=== PATIENT | female | born 1940 | race Caucasian/White ===

== ENCOUNTER 2021-10-22 22:35 | Emergency (ER) | payer MEDICARE ==
[~2021-10-22] VITALS: Ht 162.6 cm; Wt 62.6 kg
[2021-10-22 22:37] VITALS: BP_SYST 139
--- NOTE | 2021-10-22 22:37 | NUR ---
Pt BIB ALS, placed to ER bed 02, to gown and parts counterperson. Pt c/o slow onset and constant substernal chest pain with pressure, onset 1 hour [employer]. Pt states that she was sitting at the table with granddaughter, eating dinner when s/s occured. ALS established 20GA PIV in route and gave ASA 324 mg PO, NTG 0.4 mg x 3 sprays, and Zofran 4 mg IVP for 1 episode of vomiting. VSS.
--- NOTE | 2021-10-22 22:40 | NUR ---
Dr. Giraldo at bedside.
[2021-10-22] MEDS ORDERED: ONDANSETRON HCL 4 MG/2 ML VIAL IVP ONE (22:45)
[2021-10-22] MEDS ORDERED: ASPIRIN 81 MG TAB.CHEW PO ONE (22:45)
[2021-10-22] MEDS ORDERED: fentaNYL CITRATE/PF 100 MCG/2 ML AMP IVP ONE (22:45)
[2021-10-22] MEDS ORDERED: ASPIRIN 81 MG TAB.CHEW ONE (22:54)
[2021-10-22 23:21] LABS: EOSINOPHILS # (AUTO) 0.1 K/uL (0.0-0.4); EOSINOPHILS % (AUTO) 1.4 % (0.0-4.0); HEMATOCRIT 34.6 % (36-48); HEMOGLOBIN 11.9 g/dL (12.0-16.0); LYMPHOCYTES % (AUTO) 41.8 % (20.5-51.5); MEAN CORPUSCULAR HEMOGLOBIN 35 pg (27-31); MEAN CORPUSCULAR HGB CONC 34 % (32-36); MEAN CORPUSCULAR VOLUME 101 fL (79.0-98.0); MONOCYTES # (AUTO) 0.5 K/uL (0.0-1.0); MONOCYTES % (AUTO) 10.5 % (1.7-9.3); NEUTROPHILS # (AUTO) 2.1 K/uL (1.8-7.7); NEUTROPHILS % (AUTO) 45.3 % (40.0-70.0); PLATELET COUNT (AUTO) 298 K/uL (130-430); RED BLOOD CELL COUNT(AUTO) 3.43 MIL/uL (4.2-6.2); RED CELL DISTRIBUTION WIDTH 13.8 % (9.0-15.0); WHITE BLOOD COUNT (AUTO) 4.7 K/uL (4.8-10.8)
[2021-10-22] MEDS ORDERED: ONDANSETRON HCL 4 MG/2 ML VIAL ONE (23:24)
[2021-10-22 23:39] LABS: ANION GAP 12 (5-15); CALCIUM 8.2 mg/dL (8.4-11.0); CHLORIDE 86 mmol/L (98-107); CREATININE 0.78 mg/dL (0.55-1.30); GLUCOSE 159 mg/dL (70-99); UREA NITROGEN, BLOOD 10 mg/dL (8-21)
[2021-10-22 23:47] LABS: ALANINE AMINOTRANSFERASE 23 U/L (12-78); ALBUMIN 3.7 g/dL (3.4-4.8); ASPARTATE AMINOTRANSFERASE 24 U/L (10-37); TOTAL BILIRUBIN 0.5 mg/dL (0.0-1.0)
[2021-10-22 23:50] LABS: SODIUM SERUM 119 mmol/L (136-145)
[2021-10-23 00:29] LABS: BILIRUBIN,URINE NEGATIVE (NEGATIVE); BLOOD, URINE NEGATIVE (NEGATIVE); CLARITY/URINE CLEAR (CLEAR); COLOR,URINE GREEN (YELLOW); GLUCOSE,URINE TRACE (NEGATIVE); KETONES,URINE NEGATIVE (NEGATIVE); LEUKOCYTE ESTERASE ,URINE NEGATIVE (NEGATIVE); NITRITE, URINE NEGATIVE (NEGATIVE); PH,URINE 6.5 (5.0-8.0); PROTEIN URINE NEGATIVE (NEGATIVE); UROBILINOGEN,URINE 0.2 (0.2-1.0)
[2021-10-23] MEDS ORDERED: fentaNYL CITRATE/PF 100 MCG/2 ML AMP IVP ONE ×2 (02:00→03:30)
[2021-10-23] MEDS ORDERED: POTASSIUM CHLORIDE 20 MEQ TAB.PRT.SR PO ONE (02:00)
[2021-10-23] MEDS ORDERED: MAGNESIUM SULFATE 50 ML IV ONE (02:00)
[2021-10-23] MEDS ORDERED: NACL 0.9% 1,000 ML IV ONE (02:00)
[2021-10-23] MEDS ORDERED: FAMOTIDINE PF 20 MG/2 ML VIAL IVP ONE (03:30)
[2021-10-23] MEDS ORDERED: DIPHENHYDRAMINE INJ 50 MG/ML VIAL IVP ONE (04:15)
[2021-10-23] MEDS ORDERED: METOCLOPRAMIDE HCL 10 MG/2 ML VIAL IVP ONE (04:15)
[2021-10-23] MEDS ORDERED: MORPHINE 2 MG/ML INJ. SYRINGE IVP ONE (05:00)
[2021-10-23] MEDS ORDERED: iohexoL 240 mgI/mL, 150 ML INFUS..BTL IV ONE (05:13)
--- NOTE | 2021-10-23 07:34 | NUR ---
Pt in bed #2. Pt is A&Ox4. Skin intact. has a 20g IV placed on left AC and is intact no infiltration noted. Has NS running at 60ml/hr. Personal Belonging List completed. Pt cannot recall meds she takes at home and does not know any family members number to call. [facility] is refusing to get transported to [facility]. Dr. Nagel at bedside educating pt on the importance of transportation to [facility] for higher level of care. Pt states she wants to think about it for now. rn bone marrow transplant made aware. VSS. Pt has no chest pain at this time. Bed in lowest position.
--- NOTE | 2021-10-23 11:02 | NUR ---
Spoke with Nallely DICKERSON at [facility].
[2021-10-23 12:16] VITALS: BP_SYST 115
--- NOTE | 2021-10-23 12:18 | NUR ---
Patient to be transferred to [facility]. Is being transferred due to higher level of care. Receiving facility has accepting physician and available space. ER physician has signed transfer form. Patient or responsible green party has agreed to transfer and signed form. Patient belongings inventoried and will be sent with patient. Copy of nursing notes, lab reports, EKG, Physicians Orders and X-rays to be sent with patient. Report called to Nallely DICKERSON at receiving facility. Receiving physician is Dr. Leonard. [facility] ambulance service has been called for transfer. ETA is [id number].
== END 2021-10-23 12:18 | disposition short-term general hospital (02) ==
LOC: SED 22:35
DX: R07.89 Other chest pain (principal); E87.1 Hypo-osmolality and hyponatremia; E87.6 Hypokalemia; I10 Essential (primary) hypertension; Z20.822 Contact with and (suspected) exposure to COVID-19
CPT/HCPCS: 36415; 71045; 71275; 72191; 74175; 76376; 80053; 81003; 83880; 84484; 85025; 85379; 87426; 93005; 96365; 96375 ×2; 96376; 99285; J1200; J2270; J2405; J2765; J3010 ×2; J3475; Q9966; J3490

== ENCOUNTER 2022-09-20 19:17 | Emergency (ER) | payer MEDICARE ==
[~2022-09-20] VITALS: Ht 157.5 cm; Wt 51.7 kg
[2022-09-20 19:35] VITALS: BP_SYST 162
[2022-09-20] MEDS ORDERED: ACETAMINOPHEN 325 MG TABLET PO ONE (22:30)
[2022-09-21] MEDS ORDERED: MORPHINE 4 MG INJ. 4 MG/ML VIAL IVP ONE
[2022-09-21] MEDS ORDERED: IOHEXOL 350 mgI/mL, 150 ML INFUS..BTL IV ONE (00:17)
[2022-09-21 00:25] LABS: ANION GAP 13 (5-15); CALCIUM 8.6 mg/dL (8.4-11.0); CHLORIDE 103 mmol/L (98-107); CREATININE 0.72 mg/dL (0.55-1.30); GLUCOSE 109 mg/dL (70-99); UREA NITROGEN, BLOOD 15 mg/dL (8-21)
[2022-09-21 00:29] LABS: BASOPHILS # (AUTO) 0.1 K/uL (0.0-0.2); BASOPHILS % (AUTO) 1.2 % (0.0-2.0); EOSINOPHILS # (AUTO) 0.3 K/uL (0.0-0.4); HEMATOCRIT 31.2 % (36-48); HEMOGLOBIN 10.6 g/dL (12.0-16.0); LYMPHOCYTES # (AUTO) 2.1 K/uL (1.0-5.5); LYMPHOCYTES % (AUTO) 24.3 % (20.5-51.5); MEAN CORPUSCULAR HEMOGLOBIN 34 pg (27-31); MEAN CORPUSCULAR HGB CONC 34 % (32-36); MEAN CORPUSCULAR VOLUME 99 fL (79.0-98.0); MONOCYTES # (AUTO) 0.6 K/uL (0.0-1.0); MONOCYTES % (AUTO) 6.9 % (1.7-9.3); NEUTROPHILS # (AUTO) 5.5 K/uL (1.8-7.7); NEUTROPHILS % (AUTO) 63.6 % (40.0-70.0); PLATELET COUNT (AUTO) 295 K/uL (130-430); RED BLOOD CELL COUNT(AUTO) 3.16 MIL/uL (4.2-6.2); RED CELL DISTRIBUTION WIDTH 13.6 % (9.0-15.0); WHITE BLOOD COUNT (AUTO) 8.6 K/uL (4.8-10.8)
[2022-09-21] MEDS ORDERED: KETOROLAC TROMETHAMINE 30 MG VIAL IVP ONE (02:45)
[2022-09-21] MEDS ORDERED: ONDANSETRON HCL 4 MG/2 ML VIAL ONE (03:43)
[2022-09-21] MEDS ORDERED: ONDANSETRON HCL 4 MG/2 ML VIAL IVP ONE ×2 (03:45→07:00)
[2022-09-21] MEDS ORDERED: ONDANSETRON 4 MG ODT TAB PO ONE (06:00)
[2022-09-21] MEDS ORDERED: ONDA-8 TL (06:44)
[2022-09-21] MEDS ORDERED: NACL 0.9% 1,000 ML IV ONE (07:00)
[2022-09-21 10:45] VITALS: BP_SYST 128
== END 2022-09-21 10:56 | disposition short-term general hospital (02) ==
LOC: SED 19:17
DX: S12.300A Unspecified displaced fracture of fourth cervical vertebra, initial encounter for closed fracture (principal); S01.01XA Laceration without foreign body of scalp, initial encounter; Z79.899 Other long term (current) drug therapy; W18.49XA Other slipping, tripping and stumbling without falling, initial encounter; Y93.89 Activity, other specified; Y92.89 Other specified places as the place of occurrence of the external cause; Y99.8 Other external cause status
CPT/HCPCS: 99285; 70450; 80048; 85025; 36415; 72125; 76376 ×2; 12002; 96374; 70498; 96375; 96361; 93005; 96376; Q0162; J1885; J2405; J2270; Q9967; J7030